=== PATIENT | female | born 1965 | race Caucasian/White ===

== ENCOUNTER 2022-08-07 08:11 | Emergency (ER) | payer OTHER, SELFPAY ==
[2022-08-07 08:12] VITALS: BP 152/93; PULSE 96; RESP 14; TEMP 35.6; O2SAT 99; BMI 34.9
--- NOTE | 2022-08-07 08:29 | EX.ED.VIS.UR ---
HPI HPI - URI History of Present Illness Chief Complaint: Cough Informant: patient Onset/Context/Timing Onset: Days (4) Context: Gradual Onset Timing: Continuous Quality: Productive cough Location: Chest Worsened by: - (Nothing) Relieved by: - (Nothing) Associated Symptoms Associated Symptoms: Positive for Nasal Congestion, Headache, Sinus Pressure and Productive Cough; Negative for Myalgias, Nausea, Vomiting, Diarrhea, Shortness of Breath, Chest Pain, Nonproductive cough or Hemoptysis Narrative Narrative: Patient presents with cough that has been constant for the past 4 days. Patient states it came on gradually. Patient states it has been constant for the past 4 days. Patient states she is coughing up some yellow sputum. Patient states nothing makes it better nothing makes it worse. Patient states she has been taking cough drops with no improvement. Patient denies any fevers or chills. Patient admits to a headache and sinus pressure. Patient denies any shortness of breath or chest pain. ROS ROS ED Constitutional Constitutional ED: Denies chills or fever(s) Eyes Eyes: Denies blurry vision or change in vision ENT ENT ED: Denies ear pain or sore throat Cardiovascular Cardiovascular: Denies chest pain or palpitations Respiratory/Chest Respiratory/Chest: Reports cough and sputum; Denies dyspnea Gastrointestinal Gastrointestinal: Denies nausea or vomiting Genitourinary Genitourinary ED: Denies dysuria or hematuria Musculoskeletal Musculoskeletal: Denies back pain or neck pain Integumentary Denies abscess or rash Neurologic Neurologic: Denies headache(s) or weakness Allergic/Immunologic Allergic/Immunologic ED: Denies mouth swelling or urticaria PFSH PFSH Medical History no medical history no medical history Home Medications azithromycin 250 mg tablet 250 mg PO DAILY #4 TABLETS 08/07/22 [Rx Last Taken Unknown] Allergy/AdvReac Type Severity Reaction Status Date / Time No Known Allergies Allergy Verified 08/07/22 08:12 Surgical History History of hysterectomy Social History Smoking Status: Former smoker EXAM Physical Exam Const Vital Signs: 08/07/22 08:12 08/07/22 08:53 Temperature 96.1 F L Temperature Source Temporal Pulse Rate 96 Respiratory Rate 14 Respiratory Effort Normal Non-Labored Respiratory Depth Normal Respiratory Pattern Normal Blood Pressure 152/93 H Blood Pressure Mean 112 Pulse Ox 99 Oxygen Delivery Method Room Air Room Air Positive well nourished, well developed and obese General Appearance ED: well developed and NAD Nutritional Appearance: obese HEENT Reports moist mucous membranes HEENT Narrative: There is some mild postnasal drainage in the oropharynx. There is mild erythema. There are no exudates. normocephalic Neck supple, no meningeal signs and no JVD Resp normal respiratory effort and clear to auscultation bilaterally Auscultation: diminished lung sounds diffuse Cardio Rate: regular rate Rhythm: regular rhythm Neuro oriented x3, CN's II-XII intact bilaterally and no sensory deficits noted Sensorium / Orientation: alert Motor Exam: strength 5/5 throughout Psych mental status grossly normal MDM MDM MDM Narrative Medical decision making narrative: PA and lateral chest x-ray was obtained. There are 2 views. On my interpretation, there are patchy infiltrates in both lower lobes, worse on the right. Radiologist also interpreted the x-rays and agrees. COVID-19 rapid antigen was obtained and was negative. Influenza A and influenza B swabs were obtained and were negative. Patient was advised of her findings. Patient was given a dose of Zithromax here. Patient was given a prescription for Zithromax. Patient was instructed to follow-up with her primary care physician in 5 to 7 days. Patient was instructed to take [id number] cough medications as needed. Patient understood and was agreeable with the plan. All questions were answered. Radiography Diagnostic Testing: Clinical Impression(s) from Imaging Studies Chest X-Ray 08/07/22 08:34 IMPRESSION: There are faint patchy infiltrates in both lower lobes more prominent at the right lung base. Follow-up recommended. Electronically Signed: Vincent Smallwood MD at 8:51 EDT , Discharge Plan Triage Chief Complaint: Cough ED Provider: Vincent Ricks Dx/Rx/DC Orders Clinical Impression: Pneumonia, Obesity (BMI 30-39.9) Instructions: ED Pneumonia (Adult) Prescriptions: New azithromycin [azithromycin] 250 mg tablet 250 mg PO DAILY Qty: 4 0RF Primary Care Provider: Care Physician,No Primary Referrals: Jaja Veloz DO [Med Staff - Technology [employer] Consultant] - 5-7 Days Care Physician,No Primary [Primary Care Provider] - Disposition Disposition: Home, Self Care
--- NOTE | 2022-08-07 08:34 | RAD_ITS ---
STUDY: X-RAY CHEST REASON FOR EXAM: Female, 58 years old. Cough TECHNIQUE: 1 week history of cough. COMPARISON: None. FINDINGS: There are faint patchy infiltrates in both lower lobes more prominent at the right base. Follow-up recommended. There is no demonstrated pleural abnormality. Normal size heart. Normal mediastinum and charity. Normal visualized pulmonary arteries. Normal visualized aortic arch and descending thoracic aorta. Normal visualized thoracic spine. Normal visualized ribs, clavicles, and shoulders. There is no demonstrated abnormality of the visualized soft tissue structures of the upper abdomen. RAD/Chest 1 View (Portable) IMPRESSION: There are faint patchy infiltrates in both lower lobes more prominent at the right lung base. Follow-up recommended. Electronically Signed: Vincent Smallwood MD at 8:51 EDT ,
[2022-08-07] MEDS: Azithromycin 250 MG Tablet 500 MG PO (09:44)
== END 2022-08-07 09:51 | disposition home or self-care (01) ==
PROVIDERS: Emergency Provider Emergency Medicine; Visit Provider Emergency Medicine
DX: J18.9 Pneumonia, unspecified organism (principal); E66.9 Obesity, unspecified; Z87.891 Personal history of nicotine dependence
CPT/HCPCS: 71045; 87428; 99283